=== PATIENT | male | born 1980 | race Caucasian/White ===

== ENCOUNTER 2016-11-19 17:42 | Emergency (ER) | payer SELFPAY ==
[~2016-11-19] VITALS: Ht 190.5 cm; Wt 108.9 kg
[~2016-11-19 17:42] MED LIST: AMOX500C2 PO; CEPH500C PO; CYCL10TA9 PO; HYDR-2890 PO; HYDR1TAB PO; METH4TAB PO; NAPR-243 PO; ONDA-42 SL; TRM50T PO
--- OUTSIDE RECORDS SUMMARY | 2016-11-19 17:47 | XMS REPORT | Continuity of Care Document ---
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 Name Role Phone NO, LOCAL PHYSICIAN PCP Unavailable Insurance Providers Payer Name Policy Number Subscriber Name Relationship Self Pay Riddhi Miller 18 Self / Same As Patient Advance Directives Directive Response Recorded Date/Time Advance Directives No 06/17/14 11:05pm Health Care Power of Sports Information Director No 06/17/14 11:05pm Organ Donor No 06/17/14 11:05pm Resuscitation Status Full Code 06/17/14 11:05pm Problems Medical Problems Problem Onset Date Status Dental caries extending into dentine Unknown Active Diarrhea Unknown Active Nausea and vomiting Unknown Active Medications Medication Dose Route Sig Days/Qty Instructions Order Date Discontinued Date Status Naproxen 1 Each PO TID PRN 20 Qty FOR PAIN 04/08/11 07/14/11 Discontinued Methylprednisolone 1 Packet PO DIRECTED 1 Qty 07/14/11 08/31/13 Discontinued Acetaminophen/Hydrocodone Bitart 1 - 2 Each PO Q4HR PRN 16 Qty 08/31/13 Discontinued Amoxicillin 1 Each PO THREE TIMES A DAY 10 Days 08/31/13 12/29/13 Discontinued Tramadol HCl 50 Mg PO EVERY 6 HOURS 10 Qty 08/31/13 12/29/13 Discontinued Cephalexin Monohydrate (Keflex) 1 Each PO FOUR TIMES DAILY 40 Qty 12/2906/17/14 Discontinued Hydrocodone Bit/Acetaminophen 1 Each PO EVERY 6 HOURS 60 Qty 12/29/13 06/17/14 Discontinued Amoxicillin 2 Each PO TWICE A DAY 40 Qty 06/17/14 Active Ondansetron Hcl 4 Mg SL EVERY 4HRS PRN NAUSEA/VOMITING 10 Qty 06/17/14 Active Social History Social History Problem Response Recorded Date/Time Alcohol Use Occasionally Uses 06/17/2014 11:05pm Recreational Drug Use No 06/17/2014 11:05pm Recent Foreign Travel No 06/17/2014 11:05pm Recent Infectious Disease Exposure No 06/17/2014 11:05pm Hospitalization with Isolation Denies 06/17/2014 11:05pm HIV/AIDS No 06/17/2014 11:05pm Smoking Status Current Everyday Smoker 06/17/2014 11:05pm Query Response Start Date Stop Date Smoking Status Current Everyday Smoker Hospital Discharge Instructions No hospital discharge instructions. Plan of Care No plan of care. Functional Status No functional status results. Allergies, Adverse Reactions, Alerts Allergen Type Severity Reaction Status Last Updated No Known Drug Allergies Active 04/08/11 Immunizations Name Given Type Tetanus Booster (TDap) More than 5yrs Historical Vital Signs Acute Vital Signs Vital Response Date/Time Temperature (Fahrenheit) 99.2 degrees F (97.6 - 99.5) Temperature (Calculated Celsius) 37.53902 degrees C (36.4 - 37.5) Temperature Source Temporal Pulse Rate (adult) 90 bpm (60 - 90) Respiratory Rate 18 bpm (12 - 24) O2 Sat by Pulse Oximetry 97 % (88 - 100) Blood Pressure 159/112 mm Hg Pain Pain Intensity 10 Height (Feet) 6 feet Height (Inches) 3 inches Height (Calculated Centimeters) 190.267522 cm Weight (Pounds) 250 pounds Weight (Calculated Kilograms) 113.512725 kilograms Calculated BMI 31.24 Results Test Source Date Result Interp. Ref. Range Comments BUN/Creatinine Ratio February 02, 2007 6:35pm 9 - Has specimen been collected/obtained? Y Basophils # (Auto) February 02, 2007 6:35pm 0.0 10^3/uL N 0.0-0.1 Has specimen been collected/obtained? Y Basophils (%) (Auto) February 02, 2007 6:35pm 0 % N 0-10 Has specimen been collected/obtained? Y Blood Urea Nitrogen February 02, 2007 6:35pm 11 MG/DL N 7-18 Has specimen been collected/obtained? Y Calcium Level February 02, 2007 6:35pm 8.7 MG/DL N 8.5-10.1 Has specimen been collected/obtained? Y Carbon Dioxide Level February 02, 2007 6:35pm 28 MMOL/L N 21-32 Has specimen been collected/obtained? Y Chloride Level February 02, 2007 6:35pm 101 MMOL/L N 101-110 Has specimen been collected/obtained? Y Creatinine February 02, 2007 6:35pm 1.2 MG/DL N 0.6-1.3 Has specimen been collected/obtained? Y Eosinophils # (Auto) February 02, 2007 6:35pm 0.3 10^3/uL N 0.0-0.3 Has specimen been collected/obtained? Y Eosinophils (%) (Auto) February 02, 2007 6:35pm 3 % N 0-10 Has specimen been collected/obtained? Y Glucose Level February 02, 2007 6:35pm 98 MG/DL N 70-126 Has specimen been collected/obtained? Y Group A Streptococcus Screen April 28, 2006 10:16pm Negative - Has specimen been collected/obtained? Y Hematocrit February 02, 2007 6:35pm 49 % N 40-54 Has specimen been collected /obtained? Y Hemoglobin February 02, 2007 6:35pm 17.8 G/DL H 13.3-17.7 Has specimen been collected/obtained? Y Lymphocytes # (Auto) February 02, 2007 6:35pm 3.6 X 10^3 N 1.0-4.0 Has specimen been collected/obtained? Y Lymphocytes (%) (Auto) February 02, 2007 6:35pm 34 % N 12-44 Has specimen been collected/obtained? Y Mean Corpuscular Hemoglobin February 02, 2007 6:35pm 32 PG N 25-34 Has specimen been collected/obtained? Y Mean Corpuscular Hemoglobin Concent February 02, 2007 6:35pm 36 G/DL N 32-36 Has specimen been collected/obtained? Y Mean Corpuscular Volume February 02, 2007 6:35pm 89 FL N 80-99 Has specimen been collected/obtained? Y Mean Platelet Volume February 02, 2007 6:35pm 10.3 FL N 7.4-10.4 Has specimen been collected/obtained? Y Monocytes # (Auto) February 02, 2007 6:35pm 0.9 X 10^3 N 0.0-1.0 Has specimen been collected/obtained? Y Monocytes (%) (Auto) February 02, 2007 6:35pm 9 % N 0-12 Has specimen been collected/obtained? Y Monoscreen April 28, 2006 10:24pm Negative - Has specimen been collected/obtained? Y Neutrophils # (Auto) February 02, 2007 6:35pm 5.6 X 10^3 N 1.8-7.8 Has specimen been collected/obtained? Y Neutrophils (%) (Auto) February 02, 2007 6:35pm 54 % N 42-75 Has specimen been collected/obtained? Y Platelet Count February 02, 2007 6:35pm 205 10^3/uL N 130-400 Has specimen been collected/obtained? Y Potassium Level February 02, 2007 6:35pm 4.2 MMOL/L N 3.6-5.0 Has specimen been collected/obtained? Y Red Blood Count February 02, 2007 6:35pm 5.49 10^6/uL N 4.35-5.85 Has specimen been collected/obtained? Y Red Cell Distribution Width February 02, 2007 6:35pm 11.9 % N 10.0-14.5 Has specimen been collected/obtained? Y Sodium Level February 02, 2007 6:35pm 137 MMOL/L N 135-145 Has specimen been collected/obtained? Y White Blood Count February 02, 2007 6:35pm 10.4 10^3/uL N 4.3-11.0 Has specimen been collected/obtained? Y Influenza Types A,B Antigen (BRIEN) Nasal Aspirate November 22, 2007 9:42pm Procedures No known history of procedures. Encounters Encounter Location Date/Time Departed Emergency Room [facility] 06/17/14 10:59pm Recent Diagnosis
[2016-11-19] MEDS ORDERED: AMOX500C2 PO (18:01)
--- NOTE | 2016-11-19 18:01 | ED EENT ---
History of Present Illness General Chief Complaint: Dental Problems/Pain Stated Complaint: L SIDE DENTAL PAIN Nursing Triage Note: PT STATES L SIDE DENTAL PAIN. HAS HAD AN INFECTION ON AND OFF FOR OVER 1 YEAR, STATES IT HAS BEEN SWOLLEN FOR 1 MONTH CURRENTLY. Source: patient Exam Limitations: no limitations History of Present Illness Time seen by provider: 17:58 Initial Comments To ER with left lower wisdom tooth pain. This is been ongoing for 1 month. No fevers or chills. He has seen a dentist at [facility] but was told that they do not work on wisdom teeth there. They did refer him to a free clinic in [place] by Z states that he is not interested in going there because he heard that they don't use anesthesia to pull the teeth. Timing/Duration: abrupt Severity: moderate Location: dental Prearrival Treatment: no prearrival treatment Allergies and Home Medications Allergies Coded Allergies: No Known Drug Allergies (Unverified , 04/08/11) Home Medications Amoxicillin 500 Mg Capsule #40 2 EACH PO BID Prescribed by: OTTO CONNER on 06/17/14 2345 Ondansetron Hcl 4 Mg Tab #10 4 MG SL Q4H PRN PRN NAUSEA/VOMITING FOR NAUSEA AND VOMITING Prescribed by: OTTO CONNER on 06/17/14 2345 Review of Systems Constitutional: see HPI Eyes: No Symptoms Reported Ears: No Symptoms Reported Nose: no symptoms reported Mouth: see HPI pain Throat: no symptoms reported Respiratory: no symptoms reported Cardiovascular: no symptoms reported Musculoskeletal: no symptoms reported Past Qtmrtoq-Dmnrkf-Xnqrpj Hx Patient Social History Alcohol Use: Rarely Uses Recreational Drug Use: No Smoking Status: Current Everyday Smoker 2nd Hand Smoke Exposure: Yes Recent Foreign Travel: No Contact w/Someone Who Travel: No Recent Infectious Disease Expo: No Recent Hopitalizations: No Immunizations Up To Date Tetanus Booster (TDap): More than 5yrs Seasonal Allergies Seasonal Allergies: No Surgeries HX Surgeries: Yes (BACK SURGERY) Respiratory Hx Respiratory Disorders: No Cardiovascular Hx Cardiac Disorders: No Neurological Hx Neurological Disorders: No Reproductive System Hx Reproductive Disorders: No HIV/AIDS: No Genitourinary Hx Genitourinary Disorders: No Gastrointestinal Hx Gastrointestinal Disorders: No Musculoskeletal Musculoskeletal Disorders: Arthritis, Fractures Endocrine Hx Endocrine Disorders: Yes (Hypoglycemia ) HEENT HX ENT Disorders: No Cancer Hx Cancer: No Psychosocial Hx Psychiatric Problems: No Integumentary HX Skin/Integumentary Disorder: No Blood Transfusions Hx Blood Disorders: No Physical Exam Vital Signs Vital Sign - Last 12Hours 11/19/16 17:47 Temp 99.1 Pulse 93 Resp 16 B/P 159/110 General Appearance: WD/WN no apparent distress Eyes: bilateral eye EOMI, bilateral eye PERRL, bilateral eye normal inspection Ears: bilateral ear TM normal, bilateral ear auricle normal, bilateral ear canal normal Nose: normal inspectionNo active bleeding Mouth/Throat: pharynx normal other (multiple dental caries, eroded teeth down to the gums) Neck: non-tender full range of motion Respiratory: normal breath sounds no respiratory distress no accessory muscle use Gastrointestinal: normal bowel sounds non tender soft Neurologic/Psychiatric: alert normal mood/affect oriented x 3 Skin: normal color warm/dry Progress/Results/Core Measures Results/Orders Vital Signs/I&O Vital Sign - Last 12Hours 11/19/16 17:47 Temp 99.1 Pulse 93 Resp 16 B/P 159/110 Blood Pressure Mean: 126 Departure Impression Impression: Primary Impression: Dental caries extending into dentine Disposition: 01 HOME, SELF-CARE Condition: Stable Departure-Patient Inst. Decision time for Depature: 18:00 Referrals: NO,LOCAL PHYSICIAN (PCP/Family) Primary Care Physician Patient Instructions: Dental Pain (DC) Add. Discharge Instructions: 1. Antibiotics as directed 2. Use topical Orajel from [employer] in addition to Tylenol and Motrin for pain 3. Follow-up with a dentist as soon as possible All discharge instructions reviewed with patient and/or family. Voiced understanding. Scripts Amoxicillin 500 Mg Snubisl245 Mg PO TID #30 CAP Prov:RAFFAELE NICHOLS [employer] 11/19/16 RAFFAELE NICHOLS APRN Nov 19, 2016 18:01
[2016-11-19 18:18] VITALS: BP 147/101
== END 2016-11-19 18:21 | disposition home or self-care (01) ==
LOC: EDUNIT# 17:42 → ER 17:43
DX: K02.9 Dental caries, unspecified (principal); F17.210 Nicotine dependence, cigarettes, uncomplicated
CPT/HCPCS: 99282

== ENCOUNTER 2017-05-27 19:43 | Inpatient (IN) | payer OTHER ==
[~2017-05-27] VITALS: Ht 190.5 cm; Wt 113.4 kg
[2017-05-27] MEDS ORDERED: RX-AMOX/CLAV. (AUGMENTIN) 500MG TAB PPK#2 PO STA (20:17)
--- NOTE | 2017-05-27 20:20 | ED EENT ---
History of Present Illness General Chief Complaint: Dental Problems/Pain Stated Complaint: DENTAL PAIN Source: patient Exam Limitations: no limitations History of Present Illness Time seen by provider: 20:19 Initial Comments Arrives to ER accompanied by his mother with reports of dental pain to all 4 wisdom teeth for the past month. However for the past week the left lower side has been very tender. He does notice some swelling to this area but no fevers. He does not have a dentist. He was referred to Dr. Daniel to have these removed but they state Dr. Unger once $2000 upfront and Mg is unemployed and uninsured as he is trying to get disability for his chronic back pain. Timing/Duration: gradual Severity: moderate Location: dental Associated Symptoms: facial pain/swelling Allergies and Home Medications Allergies Coded Allergies: No Known Drug Allergies (Unverified , 04/08/11) Home Medications Amoxicillin 500 Mg Capsule, 2 EACH PO BID, #40 Prescribed by: OTTO CONNER on 06/17/14 2345 Amoxicillin 500 Mg Capsule, 500 MG PO TID, #30 Prescribed by: RAFFAELE NICHOLS on 11/19/16 1801 Amoxicillin/Potassium Clav 1 Each Tablet, 1 EACH PO BID, #30 Prescribed by: RAFFAELE NICHOLS on 05/27/17 2121 Chlorhexidine Gluconate 473 Ml Mouthwash, 30 ML MM BID, #473 Prescribed by: RAFFAELE NICHOLS on 05/27/17 2122 Hydrocodone/Acetaminophen 1 Each Tablet, 1 EACH PO Q4H PRN for PAIN-MODERATE, # 10 Prescribed by: RAFFAELE NICHOLS on 05/27/17 2121 Ondansetron Hcl 4 Mg Tab, 4 MG SL Q4H PRN for NAUSEA/VOMITING, #10 FOR NAUSEA AND VOMITING Prescribed by: OTTO CONNER on 06/17/14 2345 Review of Systems Constitutional: see HPI Eyes: No Symptoms Reported Ears: No Symptoms Reported Nose: no symptoms reported Mouth: see HPI, pain Throat: no symptoms reported Respiratory: no symptoms reported Cardiovascular: no symptoms reported Musculoskeletal: no symptoms reported Past Brbesbv-Jlivhr-Otcgjy Hx Patient Social History Alcohol Use: Occasionally Uses Recreational Drug Use: No Smoking Status: Current Everyday Smoker Type Used: Cigarettes 2nd Hand Smoke Exposure: Yes Recent Foreign Travel: No Contact w/Someone Who Travel: No Recent Hopitalizations: No Immunizations Up To Date Tetanus Booster (TDap): More than 5yrs Seasonal Allergies Seasonal Allergies: No Surgeries History of Surgeries: Yes (BACK SURGERY) Respiratory History of Respiratory Disorde: No Cardiovascular History of Cardiac Disorders: No Neurological History of Neurological Disord: No Reproductive System Hx Reproductive Disorders: No HIV/AIDS: No Genitourinary History of Genitourinary Disor: No Gastrointestinal History of Gastrointestinal Di: No Musculoskeletal History of Musculoskeletal Dis: Yes (MULTIPLE FRACTURES) Musculoskeletal Disorders: Arthritis, Fractures Endocrine History of Endocrine Disorders: Yes (Hypoglycemia ) HEENT History of HEENT Disorders: No Cancer History of Cancer: No Psychosocial History of Psychiatric Problem: No Integumentary History of Skin or Integumenta: No Blood Transfusions History of Blood Disorders: No Physical Exam Vital Signs Vital Sign - Last 12Hours 05/27/17 19:55 Temp 100.0 Pulse 102 Resp 20 B/P (MAP) 156/99 Pulse Ox 99 O2 Delivery Room Air General Appearance: WD/WN, no apparent distress Eyes: bilateral eye normal inspection, bilateral eye PERRL, bilateral eye EOMI Ears: bilateral ear auricle normal, bilateral ear canal normal, bilateral ear TM normal Nose: normal inspection Mouth/Throat: dental tenderness (there is swelling and fluctuance to the buccal mucosa left side of the mandible) Neck: non-tender, full range of motion Respiratory: normal breath sounds, no respiratory distress, no accessory muscle use Gastrointestinal: normal bowel sounds, non tender, soft Neurologic/Psychiatric: alert, normal mood/affect, oriented x 3 Skin: normal color, warm/dry I&D : Blade Size: 11 Progress A left inferior alveolar nerve block was done using 2 mL of 2 percent lidocaine without epinephrine. A single stab incision was then made over the area of maximum fluctuance what. Moderate amount of purulent material was expressed. Progress/Results/Core Measures Results/Orders Lab Results Laboratory Tests Test 05/27/17 20:13 05/27/17 22:20 Range/Units White Blood Count 12.0 H 4.3-11.0 10^3/uL Red Blood Count 5.28 4.35-5.85 10^6/uL Hemoglobin 17.0 13.3-17.7 G/DL Hematocrit 48 40-54 % Mean Corpuscular Volume 92 80-99 FL Mean Corpuscular Hemoglobin 32 25-34 PG Mean Corpuscular Hemoglobin Concent 35 32-36 G/DL Red Cell Distribution Width 12.1 10.0-14.5 % Platelet Count 151 130-400 10^3/uL Mean Platelet Volume 10.5 H 7.4-10.4 FL Neutrophils (%) (Auto) 72 42-75 % Lymphocytes (%) (Auto) 16 12-44 % Monocytes (%) (Auto) 11 0-12 % Eosinophils (%) (Auto) 1 0-10 % Basophils (%) (Auto) 0 0-10 % Neutrophils # (Auto) 8.6 H 1.8-7.8 X 10^3 Lymphocytes # (Auto) 1.9 1.0-4.0 X 10^3 Monocytes # (Auto) 1.3 H 0.0-1.0 X 10^3 Eosinophils # (Auto) 0.1 0.0-0.3 10^3/uL Basophils # (Auto) 0.0 0.0-0.1 10^3/uL Erythrocyte Sedimentation Rate 5 0-15 MM/HR Sodium Level 137 135-145 MMOL/L Potassium Level 4.0 3.6-5.0 MMOL/L Chloride Level 103 98-107 MMOL/L Carbon Dioxide Level 25 21-32 MMOL/L Anion Gap 9 5-14 MMOL/L Blood Urea Nitrogen 12 7-18 MG/DL Creatinine 0.96 0.60-1.30 MG/DL Estimat Glomerular Filtration Rate > 60 BUN/Creatinine Ratio 13 Glucose Level 106 H 70-105 MG/DL Calcium Level 9.2 8.5-10.1 MG/DL C-Reactive Protein High Sensitivity 11.91 H 0.00-0.50 MG/DL My Orders Orders - RAFFAELE NICHOLS [employer] Cbc With Automated Diff (05/27/17 20:17) Basic Metabolic Panel (05/27/17 20:17) Ct Maxillofacial W (05/27/17 20:17) Fentanyl Injection (Sublimaze Injection (05/27/17 20:30) Lidocaine 2% Injection 20 Ml (Xylocaine (05/27/17 20:30) Clindamycin Injection (Cleocin Injection (05/27/17 20:30) Rx-Amoxicillin/Clav Tab (Rx-Augmentin Ta (05/27/17 20:17) Iohexol Injection (Omnipaque 350 Mg/Ml 1 (05/27/17 20:30) Ns (Ivpb) (Sodium Chloride 0.9% Ivpb Bag (05/27/17 20:30) Erythrocyte Sedimentation Rate (05/27/17 21:44) Hs C Reactive Protein (05/27/17 21:44) Ibuprofen Tablet (Motrin Tablet) (05/27/17 22:15) Blood Culture (05/27/17 22:03) Lactic Acid Analyzer (05/27/17 22:03) Ondansetron Injection (Zofran Injectio (05/27/17 22:30) Fentanyl Injection (Sublimaze Injection (05/27/17 22:30) General/Regular (05/28/17 Breakfast) Medications Given in ED Current Medications Medications Dose Ordered Sig/Jaja Route Start Time Stop Time Status Last Admin Dose Admin Clindamycin Phosphate 900 mg/ Sodium Chloride 56 ml @ 100 mls/hr ONCE ONCE IV 05/27/17 20:30 05/27/17 21:03 DC 05/27/17 20:49 100 MLS/HR Fentanyl Citrate 50 mcg ONCE ONCE IVP 05/27/17 20:30 05/27/17 20:31 DC 05/27/17 20:30 50 MCG Iohexol 100 ml ONCE ONCE IV 05/27/17 20:30 05/27/17 20:31 DC 05/27/17 20:34 100 ML Lidocaine HCl 2 ml ONCE ONCE INJ 05/27/17 20:30 05/27/17 20:31 DC 05/27/17 20:54 2 ML Sodium Chloride 100 ml ONCE ONCE IV 05/27/17 20:30 05/27/17 20:31 DC 05/27/17 20:34 100 ML Vital Signs/I&O Vital Sign - Last 12Hours 05/27/17 05/27/17 19:55 20:54 Temp 100.0 100.0 Pulse 102 Resp 20 B/P (MAP) 156/99 Pulse Ox 99 O2 Delivery Room Air Departure Communication (Admissions) Time/Spoke to Admitting Phy: 22:04 Communication 2204-temperature up to 101.3. Heart rate 103, confirmed source of infection. Patient meets sepsis criteria. We will admit for Unasyn IV and a consult to Dr. Unger in the morning. Impression Impression: Primary Impression: Dental abscess Additional Impression: Osteomyelitis of jaw Disposition: 01 HOME, SELF-CARE Condition: Stable Admissions Decision to Admit Reason: Admit from ER (General) Decision to Admit/Date: May 27, 2017 Time/Decision to Admit Time: 22:05 Departure-Patient Inst. Decision time for Depature: 21:15 Referrals: NO,LOCAL PHYSICIAN (PCP/Family) Primary Care Physician Patient Instructions: ABSCESS, Dental Specialists Add. Discharge Instructions: 1. Antibiotics as directed 2. Return to ER for any concerns 3. All discharge instructions reviewed with patient and/or family. Voiced understanding. Scripts Chlorhexidine Gluconate (Peridex) 473 Ml Mouthwash 30 ML MM BID, #473 ML Prov: RAFFAELE NICHOLS APRN 05/27/17 Hydrocodone/Acetaminophen ([place] 5-325 Tablet) 1 Each Tablet 1 EACH PO Q4H Y for PAIN-MODERATE, #10 TAB Prov: RAFFAELE NICHOLS APRN 05/27/17 Amoxicillin/Potassium Clav (Augmentin 875-125 Tablet) 1 Each Tablet 1 EACH PO BID, #30 TAB Prov: RAFFAELE NICHOLS APRN 05/27/17 RAFFAELE NICHOLS APRN May 27, 2017 20:20
[2017-05-27 20:22] LABS: BASOPHILS % (AUTO) 0 % (0-10); EOSINOPHILS # (AUTO) 0.1 10^3/uL (0.0-0.3); EOSINOPHILS % (AUTO) 1 % (0-10); LYMPHOCYTES # (AUTO) 1.9 X 10^3 (1.0-4.0); LYMPHOCYTES % (AUTO) 16 % (12-44); MEAN CORPUSCULAR HEMOGLOBIN 32 PG (25-34); MEAN CORPUSCULAR HGB CONC 35 G/DL (32-36); MEAN CORPUSCULAR VOLUME 92 FL (80-99); MEAN PLATELET VOLUME 10.5 FL (7.4-10.4); MONOCYTES # (AUTO) 1.3 X 10^3 (0.0-1.0); MONOCYTES % (AUTO) 11 % (0-12); NEUTROPHILS # (AUTO) 8.6 X 10^3 (1.8-7.8); NEUTROPHILS % (AUTO) 72 % (42-75); PLATELET COUNT 151 10^3/uL (130-400); RED BLOOD COUNT 5.28 10^6/uL (4.35-5.85); RED CELL DISTRIBUTION WIDTH 12.1 % (10.0-14.5)
[2017-05-27] MEDS ORDERED: CLINDAMYCIN INJECTION 900 MG in NS (IVPB) 50 ML IV ONE (20:30)
[2017-05-27] MEDS ORDERED: fentaNYL INJECTION 100 MCG/2 ML AMP IVP ONE ×2 (20:30→22:30)
[2017-05-27] MEDS ORDERED: NS 100 ML (IVPB) BAG IV ONE (20:30)
[2017-05-27] MEDS ORDERED: IOHEXOL 350 MG/ML 100 ML (OMNIPAQUE 350) VIAL IV ONE (20:30)
[2017-05-27] MEDS ORDERED: LIDOCAINE 2% 20 ML (XYLOCAINE) VIAL INJ ONE (20:30)
[2017-05-27 20:36] LABS: ANION GAP 9 MMOL/L (5-14); BLOOD UREA NITROGEN 12 MG/DL (7-18); BUN/CREATININE RATIO 13; CALCIUM 9.2 MG/DL (8.5-10.1); CARBON DIOXIDE 25 MMOL/L (21-32); CHLORIDE 103 MMOL/L (98-107); CREATININE SERUM 0.96 MG/DL (0.60-1.30); GFR ESTIMATED > 60; GLUCOSE 106 MG/DL (70-105); SODIUM 137 MMOL/L (135-145)
--- NOTE | 2017-05-27 21:09 | Diagnostic Imaging Report ---
PROCEDURE: CT maxillofacial with contrast. TECHNIQUE: After intravenous administration of contrast, axial images were obtained through the face and reformatted into coronal and sagittal planes. INDICATION: Swollen left jaw. COMPARISON: None. FINDINGS: There are extensive dental caries involving both the maxilla and mandible. There is erosion of multiple teeth. Additionally, multiple periapical lucencies are seen involving both the maxilla and mandible. There are also a few more prominent cystic expansile periapical lesions. There is a 1.4 x 1.0 cm periapical cystic lesion involving the posterior left mandibular molar (image 36, series 5). Additionally, there is a 1.0 x 0.8 cm periapical cystic lesion involving right maxillary incisor (tooth #7). Finally, there is a dominant large 2.2 x 2.3 cm periapical lucent lesion involving the apex of the maxilla to the left lateral midline, which appears to be epicentered around tooth #10. There is thin cortical rim at the margins. There is also significant abnormality to the soft tissues surrounding the mandible. Along the left lateral margins of the mandibular body, there is focal area of hypoattenuation/hypoenhancement that measures 2.8 x 1.0 cm. Evaluation of the underlying osseous structures demonstrates multiple periapical lucencies. There is also erosion of the underlying lateral margins of the adjacent mandible (image 31, series 5). Findings are suspicious for soft tissue abscess with underlying periapical abscess and osteomyelitis of the mandible. No acute osseous abnormality is seen. There is no evidence of acute fracture or dislocation. No unexpected radiopaque foreign bodies are seen. Included portions of the intracranial structures show no additional acute abnormalities. There are a few prominent appearing soft tissue lymph nodes; largest is just anterior to the left submandibular gland and measures 1.2 x 2.2 cm. IMPRESSION: 1. Extensive dental caries with multiple periapical abscesses involving the mandible and maxilla. Findings are consistent with periapical abscesses. 2. Findings consistent with osteomyelitis of the left mandible and associated soft tissue abscess as described above. 3. At least three prominent cystic appearing maxillary lesions with the dominant area anteriorly to the left lateral midline epicentered at tooth #10. Findings are also likely on the basis of underlying dental caries and personal service representative of periapical cysts. 4. Adenopathy; likely reactive. Dictated by: Dictated on workstation # [id number]
[2017-05-27] MEDS ORDERED: HYDR-757 PO (21:21)
[2017-05-27] MEDS ORDERED: AMOX-358 PO (21:21)
[2017-05-27] MEDS ORDERED: CHLO473M4 MM (21:22)
[2017-05-27] MEDS ORDERED: IBUPROFEN 800 MG (MOTRIN) TAB PO ONE (22:15)
[2017-05-27] MEDS ORDERED: ONDANSETRON 4 MG/2 ML (SDV) Z0FRAN IVP ONE (22:30)
[2017-05-27 23:44] VITALS: BP 154/93
[2017-05-28] MEDS ORDERED: NS IV 1000 ML 1,000 ML ONE
[2017-05-28] MEDS ORDERED: ACETAMINOPHEN 325 MG TABLET/CAPLET (TYLENOL) PO PRN (00:45)
[2017-05-28] MEDS ORDERED: IBUPROFEN 600 MG (MOTRIN) TAB PO PRN (00:45)
[2017-05-28] MEDS: NS IV 1000 ML 1,000 ML IV SCH ×3 (00:46→17:35)
[2017-05-28] MEDS: AMPICILLIN/SULBACTAM 3 GM/NS 100 ML IVPB IV SCH ×6 (00:51→17:44)
[2017-05-28 03:01] VITALS: BP 142/72
[2017-05-28] MEDS ORDERED: IBUP-30 PO (08:18)
[2017-05-28 08:28] VITALS: BP 128/72
[2017-05-28] MEDS: HYDROcodone/APAP 5 MG/325 MG (LORTAB) TAB PO PRN ×3 (08:40→22:02)
[2017-05-28] MEDS: NICOTINE 21 MG (NICODERM) PATCH TD SCH (08:41)
[2017-05-28 12:37] VITALS: BP 141/75
--- NOTE | 2017-05-28 15:31 | History & Physical-Hospitalist ---
HPI History of Present Illness: HPI/Chief Complaint The patient is a 37-year-old white male who presented to the emergency room on the evening of admission. He complained of severe jaw pain particularly on the left. Workup showed horrible dentition to observation. A maxillofacial CT scan was performed which showed abundant evidence of abscesses cystic abnormalities throughout the upper and lower jaw. They also suggested by report that there might be osteomyelitis of the chest. He reports that his situation has been declining for at least a month. However he has had evidence of severe disease going back as far as 2013 as evidenced by multiple emergency room visits triggered by dental pain. He reported that he had been referred to Dr. Unger for extraction however could not afford the 50s. He does not presently work. His mother told the emergency room staff that he was attempting to gain disability because of chronic back pain. Source: patient, family Exam Limitations: no limitations Date Seen 05/28/17 Time Seen by Provider: 15:26 Attending Physician Travis Love MD PCP No,Local Physician Referring Physician Date of Admission May 27, 2017 at 22:00 Home Medications & Allergies Home Medications Reviewed patient Home Medication Reconciliation Form Allergies Allergies Coded Allergies No Known Drug Allergies (Unverified04/08/11) Past Bmvarst-Foykza-Jsorcl Hx Patient Social History Alcohol Use: Rarely Uses Number of Drinks Today: 1 Alcohol Beverage of Choice: Scotch Recreational Drug Use: No Smoking Status: Current Everyday Smoker Type Used: Cigarettes 2nd Hand Smoke Exposure: Yes Physical Abuse Screen: No Sexual Abuse: No Recent Foreign Travel: No Contact w/other who traveled: No Recent Hopitalizations: No Recent Infectious Disease Expo: No Immunizations Up To Date Tetanus Booster (TDap): More than 5yrs Seasonal Allergies Seasonal Allergies: No Surgeries Yes (BACK SURGERY) Respiratory No Cardiovascular No Neurological No Reproductive System Hx Reproductive Disorders: No HIV/AIDS: No Genitourinary No Gastrointestinal No Musculoskeletal Yes (MULTIPLE FRACTURES) Arthritis, Fractures Endocrine History of Endocrine Disorders: Yes (Hypoglycemia ) HEENT History of HEENT Disorders: No Cancer No Psychosocial History of Psychiatric Problem: No Integumentary History of Skin or Integumenta: No Blood Transfusions History of Blood Disorders: No Family Medical History Family Hx: Alzheimer's disease GRANDMA Colon cancer UNCLE Diabetes mellitus GRANDMA Review of Systems Constitutional: see HPI EENTM: dental problems, mouth pain, mouth swelling Respiratory: no symptoms reported Cardiovascular: no symptoms reported Gastrointestinal: no symptoms reported Genitourinary: no symptoms reported Musculoskeletal: back pain Skin: no symptoms reported Psychiatric/Neurological: No Symptoms Reported Physical Exam Physical Exam Vital Signs Vital Sign - Last 12Hours 05/27/17 19:55 Temp 100.0 Pulse 102 Resp 20 B/P (MAP) 156/99 Pulse Ox 99 O2 Delivery Room Air Capillary Refill : Less Than 3 Seconds General Appearance: Moderate Distress Eyes: Bilateral Eye Normal Inspection HEENT: Other (examination of the mouth showed few if any salvageable teeth. There were multiple craters. There is diffuse swelling of the gums. Many of the teeth were reduced to black spikes) Neck: Normal Inspection Respiratory: Chest Non Tender, Lungs Clear, Normal Breath Sounds, No Accessory Muscle Use, No Respiratory Distress Cardiovascular: Regular Rate, Rhythm, No Edema, No Gallop, No JVD, No Murmur, Normal Peripheral Pulses Results Results/Procedures Lab Laboratory Tests 05/27/17 20:13 Assessment/Plan Admission Diagnosis Remarkably poor dental hygiene and health. Evidence of multiple abscesses and possible osteomyelitis of the jaw. Assessment and Plan Oral surgery consultation by Dr. Unger. IV antibiotics. Clinical Quality Measures DVT/VTE Risk/Contraindication: Risk Factor Score Per Nursin RFS Level Per Nursing on Admit: 4+=Very High TRAVIS LOVE MD May 28, 2017 15:31
[2017-05-28 16:30] VITALS: BP 143/73
--- NOTE | 2017-05-28 16:46 | Diagnostic Imaging Report ---
INDICATION: Dental abscess. COMPARISON: CT face from 05/27/2017. FINDINGS: The large expansile periapical cyst involving the root of the left maxillary lateral incisor is again seen. Additional smaller multifocal periapical lucencies are also seen throughout the mandibula with additional foci in the axilla. Multifocal dental caries are again noted. IMPRESSION: Multifocal periodontal disease and dental caries. Dictated by: Dictated on workstation # [id number]
[2017-05-28 19:45] VITALS: BP 147/84
[2017-05-29 00:09] VITALS: BP 144/65
[2017-05-29] MEDS: AMPICILLIN/SULBACTAM 3 GM/NS 100 ML IVPB IV SCH ×4 (01:32→07:58)
[2017-05-29] MEDS: NS IV 1000 ML 1,000 ML IV SCH (02:37)
[2017-05-29] MEDS: HYDROcodone/APAP 5 MG/325 MG (LORTAB) TAB PO PRN ×2 (03:22→10:57)
[2017-05-29 04:07] VITALS: BP 154/89
[2017-05-29] MEDS: NICOTINE 21 MG (NICODERM) PATCH TD SCH (07:59)
[2017-05-29 08:07] VITALS: BP 134/61
[2017-05-29] MEDS ORDERED: NICOTINE PATCH REMOVAL TP SCH (08:59)
--- NOTE | 2017-05-29 11:11 | Discharge Summary-Hospitalist ---
Diagnosis/Chief Complaint Date of Admission May 27, 2017 at 22:00 Date of Discharge Admission Diagnosis Remarkably poor dental hygiene and health. Evidence of multiple abscesses and possible osteomyelitis of the jaw. Discharge Diagnosis Severe dental abscess Notes from 05/29/17 Chart Review: No fever Vitals stable Pt maintained on Unasyn Dr. Sanders Review: Dr. Unger was previously involved Pharmacy Review: ER had prescribed a list of medications prior to admission because they believed he would DC instead of admission. 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 Landis. Discharge Summary Discharge Physical Examination Allergies: Coded Allergies: No Known Drug Allergies (Unverified , 04/08/11) Vitals & I&Os Vital Signs Date Time Temp Pulse Resp B/P (MAP) Pulse Ox O2 Delivery O2 Flow Rate FiO2 05/29/17 08:07 97.4 70 20 134/61 97 Room Air Hospital Course Had a short hospital course. Admitted for IV abx and pain control. Edema improved and [facility] appt obtained for dental extraction. Labs (last 24 hrs) Microbiology 05/27/17 Blood Culture - Preliminary, Resulted No growth Discharge Home Medications: Active Scripts Active Augmentin 875-125 Tablet (Amoxicillin/Potassium Clav) 1 Each Tablet 1 Each PO BID Hydrocodon -Acetaminophen 5-325 (Hydrocodone/Acetaminophen) 1 Each Tablet 1 Tab PO Q4H PRN Reported Advil (Ibuprofen) 200 Mg Tablet 800 Mg PO TID PRN TAKES 4 (200MG) TABLETS Instructions to patient/family Please see electronic discharge instructions given to patient. Clinical Quality Measures DVT/VTE Risk/Contraindication: Risk Factor Score Per Nursin RFS Level Per Nursing on Admit: 4+=Very High LOLY LANDIS DO May 29, 2017 11:11
[2017-05-29] MEDS ORDERED: HYDR-3812 PO (11:15)
[2017-05-29] MEDS ORDERED: AMOX-358 PO (11:15)
[2017-05-29 12:45] VITALS: BP 134/61
--- NOTE | 2017-05-31 07:08 | CONSULTATION REPORT ---
DATE OF SERVICE: 05/29/2017 ORN MAXILLOFACIAL SURGERY I was told to see patient is a 37-year-old white male who presented with a dental abscess of the submandibular region. He has a history of dental problems. He has numerous to the point that he has 6 to 7 teeth and has had that are not grossly carious and nonrestorable. He has no abscess associated with tooth #20 or #19 that is difficult to wedge at this time. However, his airway is stable. He can open to 40 mm. His tongue is not moved when he moves around. His vital signs are essentially within normal parameters. He does have a slight temperature at 100 degrees or 100.0 Fahrenheit. At this point, he is responding well to his intravenous antibiotics and after probably another 24 hours it would be safe discharging him and to have him be treated as an outpatient either at my office or at the [facility]. At that point, he should be able to continue to manage his dental abscess with oral antibiotics. that he will definitely need some follow up treatment. He is most likely looking at the extraction above his remaining maxillary teeth and all about his anterior teeth of his mandible. Job ID: [id number] DocumentID: [id number] Dictated Date: 05/30/2017 16:48:54 Top Collar Maker Date: 05/30/2017 20:20:37 Dictated By: SANDRA SYKES DDS
== END 2017-05-29 12:55 | disposition home or self-care (01) | DRG 138 ==
LOC: EDUNIT# 19:43 → ER 19:44 → 4TH 22:00
PROVIDERS: ADMIT Internal Medicine; ATTEND Internal Medicine
PROC: 0C940ZZ Drainage of Buccal Mucosa, Open Approach (ICD-10-PCS; principal; 2017-05-27)
DX: K04.7 Periapical abscess without sinus (principal); M27.2 Inflammatory conditions of jaws; K02.9 Dental caries, unspecified; F17.210 Nicotine dependence, cigarettes, uncomplicated
CPT/HCPCS: 36415; 70355; 70487; 80048; 83605; 85025; 85652; 86141; 87040; 96365; 96375

== ENCOUNTER 2021-02-27 09:55 | Emergency (ER) | payer MEDICAID ==
[~2021-02-27] VITALS: Ht 190 cm; Wt 113.0 kg
[~2021-02-27 09:55] MED LIST changes: +ACHD5005 PO; +AMOX-358 PO; +CHLO473M4 MM; +HYDR-4226 PO; +IBUP-30 PO
[2021-02-27] MEDS ORDERED: HYDROcodone/APAP 7.5 MG/325 MG (LORTAB, LORCET PLUS) TABLET PO STA (11:00)
[2021-02-27] MEDS ORDERED: ORPHENADRINE 60 MG/2 ML (NORFLEX) AMP (ED ONLY) IM STA (11:00)
--- NOTE | 2021-02-27 11:03 | ED Neck-Back Pain/Injury ---
General Chief Complaint: Head/Cervical Problems Stated Complaint: NECK PAIN Nursing Triage Note: ARRIVED VIA AMB TO ROOM 05 WITH CHRONIC PAIN THAT HAS BECAME WORSE IN THE LAST COUPLE OF DAYS. Nursing Sepsis Screen: No Definite Risk Source of Information: Patient Exam Limitations: No Limitations History of Present Illness Date Seen by Provider: Feb 27, 2021 Time Seen by Provider: 10:55 Initial Comments Here with complaint of chronic pain in his neck and bilateral shoulders with left greater than right that radiates down to his pelvis. Notes that he was in an accident in the and has had chronic pain since. States that a was taking ibuprofen 10 at a time over half hour yesterday for the pain and it was not helping. He does not know how many he took. Also occasionally smokes marijuana to help with the pain when he can get it. Has been seen at [facility] but states they are not doing anything for him except poking him in the back and saying that he has a muscle problem. Reports that previously he was diabetic but they stopped his insulin and are not treating that anymore. He admits that he has not gone back to them because he was not getting the kind of care he thought he needed. Location: C-Spine, Paraspinous Muscles, T-Spine Timing/Duration: 1 Week, Getting Worse Severity: Moderate Pain/Injury Location: Back, Neck, Pelvis Radiation: Buttocks Method of Injury: Unknown Modifying Factors: Improves With Immobilization; Worse With Movement Associated Symptoms: muscle spasms; No fever, No weakness, No numbness in legs/feet, No tingling in legs/feet, No loss of bladder control, No loss of bowel control Allergies and Home Medications Allergies Coded Allergies: No Known Drug Allergies (Unverified , 04/08/11) Home Medications No Active Prescriptions or Reported Meds Patient Home Medication List Home Medication List Reviewed: Yes Review of Systems Constitutional: see HPI; No chills, No fever EENTM: no symptoms reported Respiratory: No cough, No short of breath Cardiovascular: no symptoms reported Gastrointestinal: No abdominal pain, No nausea, No vomiting Genitourinary: no symptoms reported Musculoskeletal: see HPI, back pain, joint pain, muscle pain, neck pain Skin: no symptoms reported Psychiatric/Neurological: No Symptoms Reported Past Xkqmaqa-Xuruwh-Xhnuqa Hx Past Med/Social Hx: Reviewed Nursing Past Med/Soc Hx Patient Social History Alcohol Use: Rarely Uses Number of Drinks Today: EE Alcohol Beverage of Choice: Scotch Drug of Choice: POT Smoking Status: Current Everyday Smoker Type Used: Cigarettes 2nd Hand Smoke Exposure: Yes Recent Infectious Disease Expo: No Recent Hopitalizations: No Immunizations Up To Date Tetanus Booster (TDap): More than 5yrs Seasonal Allergies Seasonal Allergies: No Past Medical History Surgeries: Yes (BACK SURGERY) Respiratory: No Cardiac: No Neurological: No Reproductive Disorders: No HIV/AIDS: No Genitourinary: No Gastrointestinal: No Musculoskeletal: Yes (MULTIPLE FRACTURES) Arthritis, Fractures Endocrine: Yes (Hypoglycemia ) HEENT: No Cancer: No Psychosocial: No Integumentary: No Blood Disorders: No Family Medical History Reviewed Nursing Family Hx Alzheimer's disease GRANDMA Colon cancer UNCLE Diabetes mellitus GRANDMA Physical Exam Vital Signs Vital Signs - First Documented 02/27/21 10:00 Temp 36.0 Pulse 114 Resp 16 B/P (MAP) 143/90 (107) Pulse Ox 97 O2 Delivery Room Air Capillary Refill : Less Than 3 Seconds Height, Weight, BMI Height: 6'3.00" Weight: 250lbs. 0.0oz. 113.362838sq; 31.00 BMI Method:Stated General Appearance: WD/WN, Anxious, Mild Distress HEENT: PERRL/EOMI, Pharynx Normal Neck: Non Tender, Supple Cardiovascular: Regular Rate, Rhythm, No Murmur Respiratory: Lungs Clear, Normal Breath Sounds Gastrointestinal: Non Tender, Soft Back: Other (Tenderness along the back bilateral) Skin: Warm/Dry, Other (Appears to have superficial skin long to his back in various stages of healing that at appear to be heating pad injuries. Patient admits to using heating pads.) Progress/Results/Core Measures Results/Orders Lab Results Laboratory Tests Test 02/27/21 11:16 Range/Units Sodium Level 135 135-145 MMOL/L Potassium Level 3.9 3.6-5.0 MMOL/L Chloride Level 101 98-107 MMOL/L Carbon Dioxide Level 22 21-32 MMOL/L Anion Gap 12 5-14 MMOL/L Blood Urea Nitrogen 10 7-18 MG/DL Creatinine 0.96 0.60-1.30 MG/DL Estimat Glomerular Filtration Rate > 60 BUN/Creatinine Ratio 10 Glucose Level 374 H 70-105 MG/DL Calcium Level 9.7 8.5-10.1 MG/DL Corrected Calcium 9.4 8.5-10.1 MG/DL Total Bilirubin 0.8 0.1-1.0 MG/DL Aspartate Amino Transf (AST/SGOT) 13 5-34 U/L Alanine Aminotransferase (ALT/SGPT) 27 0-55 U/L Alkaline Phosphatase 124 40-136 U/L Total Protein 7.5 6.4-8.2 GM/DL Albumin 4.4 3.2-4.5 GM/DL My Orders Orders - FRANCI EDWARD MD Hydrocodone/Apap 7.5/325 Tab (Lortab 7. (02/27/21 11:00) Orphenadrine Inj (Ed Only) (Norflex Inje (02/27/21 11:00) Comprehensive Metabolic Panel (02/27/21 11:00) Vital Signs/I&O 02/27/21 10:00 Temp 36.0 Pulse 114 Resp 16 B/P (MAP) 143/90 (107) Pulse Ox 97 O2 Delivery Room Air Blood Pressure Mean: 107 Progress Progress Note : Progress Note Seen and evaluated. I did discuss treatment of long-term chronic pain concerns including addiction. He states that he believes it safe to use narcotics but I did explain that I would not be able to prescribe those due to limitations and safety/efficacy concerns as well as legal concerns. He stated he understood. I will give him a hydrocodone 7.51 tab p.o. now as well as Norflex 60 mg IM. Given that he has reported significant overuse of ibuprofen, we will go ahead and check kidney function and chemistry panel. Patient agrees. Monitor patient. 1212: I did have long discussion with the patient regarding the need for follow-up care. I offered to make appointment through [facility] for him and he has declined that. He is looking for a new doctor. I did discuss the fact that his diabetes is still uncontrolled and he needs to follow- up on that. He states that he will. I also discussed at length proper use of [id number] medications and safety profile. Patient verbalized understanding. I will write a small prescription for Flexeril but not narcotics. Discharged home with return precautions. Patient verbalized understanding of instructions and agreement with plan. Departure Impression Primary Impression: Back pain Qualified Codes: M54.6 - Pain in thoracic spine; G89.29 - Other chronic pain Additional Impression: Hyperglycemia due to diabetes mellitus Disposition: 01 HOME, SELF-CARE Condition: Stable Departure-Patient Inst. Decision time for Depature: 12:13 Referrals: NO,LOCAL PHYSICIAN (PCP/Family) Primary Care Physician Patient Instructions: Upper Back Pain (DC), Hyperglycemia, Adult (DC) Add. Discharge Instructions: All discharge instructions reviewed with patient and/or family. Voiced understanding. It is very important that you follow-up with your physician or physician of your choosing to reevaluate your current symptoms including the uncontrolled diabetes. Long-term uncontrolled diabetes is very dangerous to you and this needs to be controlled better for your safety. Drink plenty of fluids and avoid sugared foods. You may take Tylenol/acetaminophen 1000 mg every 8 hours as needed for pain. You may take ibuprofen 800 mg every 8 hours as needed for pain. Do not exceed these doses. Return for worse pain, weakness, vomiting, difficulties with going to the bathroom or other concerns as needed. Scripts Cyclobenzaprine HCl (Cyclobenzaprine HCl) 10 Mg Tablet 10 MG PO Q8H PRN for SPASMS, #20 TAB 0 Refills Prov: FRANCI EDWARD MD 02/27/21 Copy Copies To 1: PRATIMA KOCH TIMOTHY D MD Feb 27, 2021 11:03
[2021-02-27 11:36] LABS: ALBUMIN 4.4 GM/DL (3.2-4.5)
[2021-02-27 11:37] LABS: CHLORIDE 101 MMOL/L (98-107); POTASSIUM 3.9 MMOL/L (3.6-5.0); SODIUM 135 MMOL/L (135-145)
[2021-02-27 11:38] LABS: CALCIUM 9.7 MG/DL (8.5-10.1)
[2021-02-27 11:39] LABS: GLUCOSE 374 MG/DL (70-105); TOTAL PROTEIN 7.5 GM/DL (6.4-8.2)
[2021-02-27 11:40] LABS: CARBON DIOXIDE 22 MMOL/L (21-32)
[2021-02-27 11:41] LABS: BILIRUBIN,TOTAL 0.8 MG/DL (0.1-1.0)
[2021-02-27 11:42] LABS: ALKALINE PHOSPHATASE 124 U/L (40-136)
[2021-02-27 11:43] LABS: CREATININE SERUM 0.96 MG/DL (0.60-1.30); GFR ESTIMATED > 60
[2021-02-27 11:44] LABS: BUN/CREATININE RATIO 10
[2021-02-27 11:45] LABS: ALANINE AMINOTRANSFERASE 27 U/L (0-55)
[2021-02-27] MEDS ORDERED: CYCL10TA9 PO (12:16)
[2021-02-27 12:20] VITALS: BP 143/90
== END 2021-02-27 12:19 | disposition home or self-care (01) ==
LOC: EDUNIT# 09:55 → ER 09:58
DX: G89.29 Other chronic pain (principal); M54.9 Dorsalgia, unspecified; E11.65 Type 2 diabetes mellitus with hyperglycemia; F17.210 Nicotine dependence, cigarettes, uncomplicated
CPT/HCPCS: 36415; 80053